=== PATIENT | female | born 1975 | race Caucasian/White ===

== ENCOUNTER 2017-04-03 03:21 | Emergency (ER) | payer MEDICARE, OTHER ==
[~2017-04-03] VITALS: Ht 160 cm; Wt 75.0 kg
[~2017-04-03 03:21] MED LIST: ADVA250A INH; CLON1 PO; DILA2TAB4 PO; FIORTAB4 PO; LAMO100 PO; LAMO25 PO; PROM25TA5 PO; SUDA120T3 PO; VENTAER INH; ZYRT10TA12 PO
[2017-04-03 03:23] VITALS: BP 129/92; PULSE 112; RESP 16; TEMP 98.7; O2SAT 97
[2017-04-03] MEDS ORDERED: RESP: ALBUTEROL 2.5 MG/IPRATROPIUM 0.5 MG NEB (SCH) INH ONE (04:00)
[2017-04-03] MEDS ORDERED: SODIUM CHLORIDE 0.9% FLUSH 10 ML FLUSH IVF PRN (04:00)
[2017-04-03] MEDS: RESP: ALBUTEROL 2.5 MG/3 ML NEB (SCH) INH (04:08)
[2017-04-03] MEDS ORDERED: LAMI200T PO (04:12)
[2017-04-03] MEDS ORDERED: VENTAER INH (04:12)
[2017-04-03] MEDS ORDERED: SUDO60TA2 PO (04:15)
[2017-04-03] MEDS ORDERED: MORP1TAB25 PO (04:15)
[2017-04-03] MEDS ORDERED: SYMB160A INH (04:15)
[2017-04-03] MEDS ORDERED: OXYC-395 PO (04:15)
[2017-04-03] MEDS ORDERED: MONT10TA2 PO (04:15)
[2017-04-03] MEDS ORDERED: TOPA25TA8 PO (04:15)
[2017-04-03] MEDS ORDERED: RISP0.5T20 PO (04:15)
--- NOTE | 2017-04-03 04:21 | PD ---
HPI Chief Complaint: GI Complaint Time Seen by Provider: 03:35 Travel History International Travel<30 days: No Contact w/Intl Traveler<30days: No Traveled to known affect area: No History of Present Illness HPI This is a 41-year-old female with history migraine headaches, bronchitis/asthma , who presents today with complaints of cough. Patient states she ate a bag of peanut M&Ms prior to going to sleep. She states that she woke up refluxing the M&Ms. She states that she felt some milk on down her windpipe. She reports coughing. She states at that time of the event, she had wheezing and used her inhaler. She denies any difficulty breathing but does state that she feels as though she didn't cough up all of the emesis. There are no other complaints time my examination. PFSH Past Medical History Asthma: Yes Bipolar Disorder: Yes Anxiety: Yes COPD: Yes Medical other: Yes (OA) Psychiatric: Yes ?: Not Tubal Ligation: Yes Past Surgical History Surgical History: No Previous Surgery Social History Alcohol Use: No Tobacco Use: Yes (vap) Substance Use: No Allergies-Medications (Allergen,Severity, Reaction): Coded Allergies: Imitrex (Verified Allergy, Severe, RASH, 04/03/17) Propranolol (Verified Allergy, Severe, LOW BP, 04/03/17) Tramadol (Verified Allergy, Unknown, 04/03/17) Uncoded Allergies: MAXAQUIN (Allergy, Severe, HIVES, 11/17/12) Reported Meds & Prescriptions Reported Meds & Active Scripts Active Reported Morphine ER (Morphine Sulfate) 30 Mg Tab 30 Mg PO BID Oxycodone (Oxycodone HCl) 10 Mg Tab 10 Mg PO Q8HR Symbicort Inh (Budesonide/Formoterol Fumarate) 160-4.5 Mcg/Act Aero 2 Puff INH Q12HR Singulair (Montelukast Sodium) 10 Mg Tab 10 Mg PO HS Topamax (Topiramate) 25 Mg Tab 25 Mg PO BID Risperdal (Risperidone) 0.5 Mg Tab 0.5 Mg PO BID Pseudoephedrine (Pseudoephedrine HCl) 60 Mg Tab 120 Mg PO Q12HR Lamictal (Lamotrigine) 200 Mg Tab 200 Mg PO BID Ventolin Hfa 18 GM Inh (Albuterol Sulfate) 90 Mcg/Act Aer 2 Puff INH Q6H PRN Review of Systems Except as stated in HPI: all other systems reviewed are Neg General / Constitutional: No: Fever, Chills HENT: No: Neck Pain Cardiovascular: No: Chest Pain or Discomfort, Palpitations Respiratory: Positive: Cough, Wheezing, No: Shortness of Breath Gastrointestinal: Positive: Other (reflux), No: Nausea, Vomiting, Abdominal Pain Genitourinary: No: Frequency, Dysuria Musculoskeletal: No: Weakness, Pain Neurologic: No: Weakness, Headache Physical Exam Narrative GENERAL: Well-nourished, well-developed patient, in no acute respiratory distress.. SKIN: Focused skin assessment warm/dry. HEAD: Normocephalic/atraumatic. EYES: No scleral icterus. No injection or drainage. NECK: Supple, trachea midline. CARDIOVASCULAR: Regular rate and rhythm without murmurs, gallops, or rubs. RESPIRATORY: Breath sounds equal bilaterally. No accessory muscle use. No Rales or rhonchi appreciated. GASTROINTESTINAL: Abdomen soft, non-tender, nondistended. NEUROLOGICAL: Awake and alert. Cranial nerves II through XII intact. Motor grossly within normal limits. Five out of 5 muscle strength in all muscle groups. Normal speech. Data Data Last Documented VS Vital Signs Date Time Temp Pulse Resp B/P Pulse Ox O2 Delivery O2 Flow Rate FiO2 04/03/17 03:23 98.7 112 16 129/92 97 Room Air Orders Chest, Pa & Lat (04/03/17 03:46) Sodium Chloride 0.9% Flush (Ns Flush) (04/03/17 04:00) Albuterol-Ipratropium Neb (Duoneb Neb) (04/03/17 04:00) Albuterol Neb (Albuterol Neb) (04/03/17 04:00) MDM Medical Decision Making Medical Screen Exam Complete: Yes Emergency Medical Condition: Yes Differential Diagnosis Aspiration versus bronchospasm versus reflux Narrative Course 41 year old female presents after having reflux and possible aspiration. Patient's lungs are clear. Chest x-rays negative. The patient's been given 3 breathing treatments and feels much improved. She'll be discharged and told to come back if she does fevers, return of cough or shortness of breath, or any other reason the concerns her. She is instructed to avoid eating right before bedtime. Diagnosis Primary Impression: Bronchospasm Additional Impression: near aspiration Additional Instructions: Return if you develop shortness of breath, fever, difficulty breathing, or any other reason. Disposition: 01 DISCHARGE HOME Condition: Stable Yaw Freeman MD Apr 03, 2017 04:21
--- NOTE | 2017-04-03 04:38 | RADRPT ---
EXAM DATE/TIME: 04/03/2017 03:56 [facility] COMPARISON: No previous studies available for comparison. INDICATIONS : Cough. Aspiration. MEDICAL HISTORY : None. SURGICAL HISTORY : None. ENCOUNTER: Initial ACUITY: 1 day PAIN SCORE: 0/10 LOCATION: Bilateral chest FINDINGS: PA and lateral views of the chest demonstrate the lungs to be symmetrically aerated without evidence of mass, infiltrate or effusion. The cardiomediastinal contours are unremarkable. Osseous structure s are intact. CONCLUSION: 1. No acute cardiopulmonary disease. Cheo Noble MD on April 03, 2017 at 4:36 Board Certified Radiologist. This report was verified electronically.
[2017-04-03 05:10] VITALS: BP 130/88; PULSE 108; RESP 18; O2SAT 98
== END 2017-04-03 06:08 | disposition home or self-care (01) ==
LOC: NEPE 03:21
DX: J98.01 Acute bronchospasm (principal); J44.9 Chronic obstructive pulmonary disease, unspecified
CPT/HCPCS: 71020; 94640; 94664; 99284; J7613